=== PATIENT | male | born 1980 | race Caucasian/White ===

== ENCOUNTER 2020-03-26 17:46 | Emergency (ER) | payer OTHER ==
[~2020-03-26] VITALS: Ht 177.8 cm; Wt 88.0 kg
[~2020-03-26 17:46] MED LIST: BACL20 PO; Bactrim Ds Tab1 EACH PO; CEPH500 PO; Cipro500 MG PO; Crutch1 EACH MISC; GABA300 PO; HYDACE5325 PO; HYDR1TAB94 PO; MUPI2TO TOP; NAPR500 PO; Naprosyn500 MG PO; Norco 5-325 Ta1 EACH PO; Percocet 5-3251 EACH PO; RXALBOI INH; TRAM50 PO; Vibramycin100 MG PO
[2020-03-26 19:15] LABS: Calcium, Ionized (POC) 1.19 mmol/L (1.10-1.46); Chloride (POC) 100 mmol/L (98-108); Glucose (ISTAT POC) 167 mg/dL (70-99); Hemoglobin (POC) 13.9 g/dL (13.5-17.5); Potassium (POC) 3.4 mmol/L (3.5-5.5); Sodium (POC) 139 mmol/L (135-148); Total CO2 (POC) 26 mmol/L (21-32)
== END 2020-03-26 19:49 | disposition home or self-care (01) ==
LOC: ER 17:46
PROVIDERS: Emergency Medicine
DX: R55 Syncope and collapse (principal); S00.01XA Abrasion of scalp, initial encounter; F17.210 Nicotine dependence, cigarettes, uncomplicated; Z87.820 Personal history of traumatic brain injury; W19.XXXA Unspecified fall, initial encounter
CPT/HCPCS: 36415; 80047; 85014; 93005; 93010; 99283-25

== ENCOUNTER 2020-05-04 18:32 | Emergency (ER) | payer OTHER ==
[~2020-05-04] VITALS: Ht 177.8 cm; Wt 86.2 kg
[2020-05-04] MEDS ORDERED: SULTRIDS PO (20:27)
== END 2020-05-04 20:48 | disposition home or self-care (01) ==
LOC: ER 18:32
DX: L02.415 Cutaneous abscess of right lower limb (principal); L02.414 Cutaneous abscess of left upper limb; L02.413 Cutaneous abscess of right upper limb; L03.116 Cellulitis of left lower limb; L03.114 Cellulitis of left upper limb; L03.113 Cellulitis of right upper limb; F17.210 Nicotine dependence, cigarettes, uncomplicated; Z86.19 Personal history of other infectious and parasitic diseases; Z79.899 Other long term (current) drug therapy
CPT/HCPCS: 99283; A9270-GY

== ENCOUNTER 2023-12-19 11:47 | Day surgery (SDC) | payer OTHER ==
[~2023-12-19] VITALS: Ht 175.3 cm; Wt 92.8 kg
[~2023-12-19 11:47] MED LIST changes: +Amoxicillin500 MG PO; +Lactated Ringer's 1,000 ML IV ONE; +Lidocaine HCl 2% 10 ML SDA ONE; +SULTRIDS PO
[2023-12-19] MEDS ORDERED: GABA100 (12:25)
[2023-12-19] MEDS ORDERED: TOPI50 PO (12:26)
[2023-12-19] MEDS ORDERED: Lactated Ringer's 1,000 ML IV ONE (12:30)
[2023-12-19] MEDS ORDERED: NS 50 ML IV ONE (12:31)
[2023-12-19] MEDS ORDERED: CeFAZolin Sodium 2,000 MG VIAL ONE (12:31)
[2023-12-19] MEDS ORDERED: propofoL 20 ML IV ONE ×2 (13:01→13:29)
[2023-12-19] MEDS ORDERED: Ondansetron HCl 2 MG / ML 2ML Vial ONE (13:01)
[2023-12-19] MEDS ORDERED: Dexamethasone Sod Phos 10 MG/ML 1ML VIAL ONE (13:01)
[2023-12-19] MEDS ORDERED: FentaNYL Citrate 50 MCG/ML 2 ML Injection ONE (13:01)
[2023-12-19 14:00] VITALS: BP 144/98
[2023-12-19] MEDS ORDERED: HYDROcodone 5-APAP 325 TAB ONE (14:33)
== END 2023-12-19 14:38 | disposition home or self-care (01) ==
LOC: ORSCSDS 11:47
PROVIDERS: Orthopaedic Surgery
PROC: 01N54ZZ Release Median Nerve, Percutaneous Endoscopic Approach (ICD-10-PCS; principal; 2023-12-19 12:45)
DX: G56.03 Carpal tunnel syndrome, bilateral upper limbs (principal); Z87.891 Personal history of nicotine dependence; Z86.19 Personal history of other infectious and parasitic diseases; Z79.899 Other long term (current) drug therapy
CPT/HCPCS: A9270; J0690; J1100; J2001; J2405; J2704; J3010; J7120

== ENCOUNTER 2023-12-25 23:34 | Emergency (ER) | payer OTHER ==
[~2023-12-25] VITALS: Ht 175.3 cm; Wt 98.4 kg
[~2023-12-25 23:34] MED LIST changes: +GABA100; -Lactated Ringer's 1,000 ML IV ONE; -Lidocaine HCl 2% 10 ML SDA ONE; +TOPI50 PO
[2023-12-26 00:02] LABS: BASOPHILS ABSOLUTE AUTO 0.07 K/mm3 (0.00-0.23); BASOPHILS PERCENT AUTO 1 % (0-2); EOSINOPHILS ABSOLUTE AUTO 0.55 K/mm3 (0.00-0.68); EOSINOPHILS PERCENT AUTO 5 % (0-6); Hematocrit 44.8 % (37.0-53.0); Hemoglobin 15.6 g/dL (13.5-17.5); IMMATURE GRAN ABSOLUTE AUTO 0.02 K/mm3 (0.00-0.10); IMMATURE GRAN PERCENT AUTO 0 % (0-1); LYMPHOCYTES ABSOLUTE AUTO 2.95 K/mm3 (0.84-5.20); LYMPHOCYTES PERCENT AUTO 28 % (21-46); MONOCYTES PERCENT AUTO 9 % (4-13); Mean Corpuscular HGB 30.8 pg (26.0-34.0); Mean Corpuscular HGB Conc 34.8 g/dL (31.5-36.5); Mean Corpuscular Volume 89 fL (80-100); Mean Platelet Volume 8.4 fL (9.1-12.4); NEUTROPHILS ABSOLUTE AUTO 5.91 K/mm3 (1.96-9.15); NEUTROPHILS PERCENT AUTO 57 % (41-73); Platelet Count 352 K/mm3 (150-400); RDW Standard Deviation 38.9 fL (35.1-46.3); Red Blood Cell Count 5.06 M/mm3 (4.30-5.90)
[2023-12-26 00:20] LABS: Albumin, Blood 3.9 g/dL (3.4-5.0); Albumin/Globulin Ratio 1.1 (0.8-1.8); Bilirubin, Total 0.3 mg/dL (0.1-1.0); Bun/Creatinine Ratio 20.2 (12.0-20.0); Calcium, Blood 9.1 mg/dL (8.5-10.1); Creatinine, Blood 1.04 mg/dL (0.60-1.20); Globulin, Blood 3.6 g/dL (2.2-4.0); Total Protein, Blood 7.5 g/dL (6.4-8.2)
[2023-12-26] MEDS ORDERED: Norco 5-325 Ta1 EACH PO (00:45)
[2023-12-26 00:48] VITALS: BP 145/86
[2023-12-26] MEDS ORDERED: Trimethoprim/Sulfamethoxazole DS Tab PO ONE ×2 (01:55→02:40)
[2023-12-26] MEDS ORDERED: SULTRIDS PO (01:57)
== END 2023-12-26 02:40 | disposition home or self-care (01) ==
LOC: ER 23:34
PROVIDERS: Student in an Organized Health Care Education/Training Program
DX: M25.532 Pain in left wrist (principal); M79.671 Pain in right foot; W18.30XA Fall on same level, unspecified, initial encounter; Z98.890 Other specified postprocedural states; Z79.899 Other long term (current) drug therapy; F17.210 Nicotine dependence, cigarettes, uncomplicated
CPT/HCPCS: 73110; 73620; 80053; 85025; 99283-25; A9270

== ENCOUNTER → 2024-08-03 | Outpatient (CLI) | payer OTHER ==
[2024-08-10 23:05] LABS: CALPROTECTIN,FECAL 29 ug/g (<=49)
== END ==
LOC: LAB 17:29 → LAB SHORT 17:29
PROVIDERS: Nurse Practitioner Family
DX: R10.84 Generalized abdominal pain (principal); R19.4 Change in bowel habit
CPT/HCPCS: 83993

== ENCOUNTER 2024-09-09 07:40 | Day surgery (SDC) | payer OTHER ==
[~2024-09-09] VITALS: Ht 175.3 cm; Wt 91.5 kg
[~2024-09-09 07:40] MED LIST changes: +Lactated Ringer's 1,000 ML IV ONE; +propofoL 50 ML IV ONE
[2024-09-09] MEDS ORDERED: BUPRENORPHIN-N1 EAC1 (07:55)
[2024-09-09] MEDS ORDERED: Midazolam HCL 1 MG/ML 5MLVIAL ONE ×2 (08:39→08:41)
[2024-09-09] MEDS ORDERED: Lactated Ringer's 1,000 ML IV ONE (08:45)
[2024-09-09 09:58] VITALS: BP 116/73
== END 2024-09-09 10:05 | disposition home or self-care (01) ==
LOC: ORSCSDS 07:40
PROVIDERS: Internal Medicine Gastroenterology
PROC: 0DB78ZX Excision of Stomach, Pylorus, Via Natural or Artificial Opening Endoscopic, Diagnostic (ICD-10-PCS; principal; 2024-09-09 09:00)
PROC: 0DB98ZX Excision of Duodenum, Via Natural or Artificial Opening Endoscopic, Diagnostic (ICD-10-PCS; principal; 2024-09-09 09:00)
PROC: 0DJD8ZZ Inspection of Lower Intestinal Tract, Via Natural or Artificial Opening Endoscopic (ICD-10-PCS; principal; 2024-09-09 09:00)
DX: R10.84 Generalized abdominal pain (principal); K21.9 Gastro-esophageal reflux disease without esophagitis; R11.2 Nausea with vomiting, unspecified; R19.4 Change in bowel habit; K29.50 Unspecified chronic gastritis without bleeding; B96.81 Helicobacter pylori [H. pylori] as the cause of diseases classified elsewhere; Z86.16 Personal history of COVID-19; Z86.19 Personal history of other infectious and parasitic diseases; Z79.899 Other long term (current) drug therapy
CPT/HCPCS: 88305; 88342; J2250; J2704; J7120

== ENCOUNTER 2024-11-14 19:12 | Inpatient (IN) | payer OTHER ==
[~2024-11-14] VITALS: Ht 175.3 cm; Wt 89.3 kg
[~2024-11-14 19:12] MED LIST changes: +BUPRENORPHIN-N1 EAC1 SL; -GABA100; +GABAPENTIN600 MG PO; -Lactated Ringer's 1,000 ML IV ONE; +PANTOPRAZOLE SO40 M2 PO; +VISBIOME 112.51 EACH PO; -propofoL 50 ML IV ONE
[2024-11-14 19:46] LABS: BASOPHILS ABSOLUTE AUTO 0.03 K/mm3 (0.00-0.23); BASOPHILS PERCENT AUTO 0 % (0-2); EOSINOPHILS ABSOLUTE AUTO 0.29 K/mm3 (0.00-0.68); EOSINOPHILS PERCENT AUTO 3 % (0-6); Hematocrit 38.3 % (37.0-53.0); Hemoglobin 13.3 g/dL (13.5-17.5); IMMATURE GRAN ABSOLUTE AUTO 0.02 K/mm3 (0.00-0.10); IMMATURE GRAN PERCENT AUTO 0 % (0-1); LYMPHOCYTES PERCENT AUTO 19 % (21-46); MONOCYTES ABSOLUTE AUTO 0.81 K/mm3 (0.16-1.47); MONOCYTES PERCENT AUTO 8 % (4-13); Mean Corpuscular HGB 31.1 pg (26.0-34.0); Mean Corpuscular HGB Conc 34.7 g/dL (31.5-36.5); Mean Corpuscular Volume 90 fL (80-100); Mean Platelet Volume 8.5 fL (9.1-12.4); NEUTROPHILS ABSOLUTE AUTO 7.24 K/mm3 (1.96-9.15); NEUTROPHILS PERCENT AUTO 70 % (41-73); Platelet Count 257 K/mm3 (150-400); RDW Coefficient Variation 12.2 % (11.7-14.2); RDW Standard Deviation 39.7 fL (35.1-46.3); Red Blood Cell Count 4.28 M/mm3 (4.30-5.90); White Blood Cell Count 10.39 K/mm3 (4.00-11.30)
[2024-11-14 20:05] LABS: Albumin, Blood 3.7 g/dL (3.4-5.0); Albumin/Globulin Ratio 1.1 (0.8-1.8); Bilirubin, Total 0.3 mg/dL (0.1-1.0); Bun/Creatinine Ratio 22.6 (12.0-20.0); Calcium, Blood 8.5 mg/dL (8.5-10.1); Creatinine, Blood 0.84 mg/dL (0.60-1.20); Globulin, Blood 3.5 g/dL (2.2-4.0); Potassium, Blood 3.5 mmol/L (3.5-5.5); Total Protein, Blood 7.2 g/dL (6.4-8.2)
[2024-11-14] MEDS ORDERED: GABAPENTIN600 MG PO (20:11)
[2024-11-14] MEDS ORDERED: HYDROmorphone HCl/Pf 1MG SYR IV ONE ×2 (20:15→21:25)
[2024-11-14 22:06] LABS: Body Fluid Crystals NEG (NEGATIVE)
[2024-11-14 22:21] LABS: RBC Count, Synovial Fluid 10000 /mm3 (0-0); WBC Count, Synovial Fluid 86 /mm3 (0-180)
[2024-11-14] MEDS ORDERED: Acetaminophen 325 MG TABLET PO PRN (22:55)
[2024-11-14] MEDS ORDERED: FLU VACC TS2024-25(6MOS UP)/PF 45 MCG/0.5 ML SYRINGE IM ONE (22:55)
[2024-11-14] MEDS ORDERED: HYDROmorphone HCl/Pf 1MG SYR IV PRN (22:55)
[2024-11-14] MEDS ORDERED: Ondansetron HCl 2 MG / ML 2ML Vial IV PRN (23:00)
[2024-11-14] MEDS ORDERED: Naloxone HCl 0.4MG / ML 1ML Vial IV PRN (23:00)
[2024-11-14] MEDS ORDERED: OxyCODONE HCL 5 MG TAB PO PRN (23:00)
[2024-11-14 23:01] LABS: Eos, Synovial Fluid 3 % (0-2); Lymphs, Synovial Fluid 40 % (0-15); Monocytes/Macrophages, Synovia 21 % (0-65); Neutrophils, Synovial Fluid 36 % (0-24)
[2024-11-14 23:03] LABS: Appearance, Synovial Fluid Hazy (Clear); Color, Synovial Fluid Yellow (None-P Yel)
[2024-11-14] MEDS ORDERED: Nicotine Polacrilex 2 MG Gum PO ONE (23:10)
[2024-11-14] MEDS ORDERED: Vancomycin HCL 2,000 MG in NS 500 ML IV ONE (23:40)
[2024-11-15] MEDS ORDERED: Ketorolac Tromethamine 15mg Vial IV PRN (00:20)
[2024-11-15 01:05] VITALS: BP 148/96
[2024-11-15 03:01] VITALS: BP 147/99
[2024-11-15 03:31] LABS: BASOPHILS ABSOLUTE AUTO 0.03 K/mm3 (0.00-0.23); BASOPHILS PERCENT AUTO 0 % (0-2); EOSINOPHILS ABSOLUTE AUTO 0.37 K/mm3 (0.00-0.68); EOSINOPHILS PERCENT AUTO 3 % (0-6); Hematocrit 37.1 % (37.0-53.0); Hemoglobin 12.8 g/dL (13.5-17.5); IMMATURE GRAN ABSOLUTE AUTO 0.03 K/mm3 (0.00-0.10); IMMATURE GRAN PERCENT AUTO 0 % (0-1); LYMPHOCYTES ABSOLUTE AUTO 2.03 K/mm3 (0.84-5.20); LYMPHOCYTES PERCENT AUTO 19 % (21-46); MONOCYTES PERCENT AUTO 9 % (4-13); Mean Corpuscular HGB 31.1 pg (26.0-34.0); Mean Corpuscular HGB Conc 34.5 g/dL (31.5-36.5); Mean Corpuscular Volume 90 fL (80-100); Mean Platelet Volume 8.5 fL (9.1-12.4); NEUTROPHILS ABSOLUTE AUTO 7.51 K/mm3 (1.96-9.15); NEUTROPHILS PERCENT AUTO 68 % (41-73); Platelet Count 227 K/mm3 (150-400); RDW Coefficient Variation 12.3 % (11.7-14.2); RDW Standard Deviation 40.4 fL (35.1-46.3); Red Blood Cell Count 4.11 M/mm3 (4.30-5.90); White Blood Cell Count 10.97 K/mm3 (4.00-11.30)
[2024-11-15 03:48] LABS: Magnesium, Blood 1.8 mg/dL (1.6-2.4)
[2024-11-15 03:49] LABS: Albumin, Blood 3.4 g/dL (3.4-5.0); Bilirubin, Total 0.5 mg/dL (0.1-1.0); Bun/Creatinine Ratio 23.3 (12.0-20.0); Calcium, Blood 8.3 mg/dL (8.5-10.1); Creatinine, Blood 0.86 mg/dL (0.60-1.20); Globulin, Blood 3.5 g/dL (2.2-4.0); Potassium, Blood 3.8 mmol/L (3.5-5.5); Total Protein, Blood 6.9 g/dL (6.4-8.2)
--- NOTE | 2024-11-15 06:17 | NUR ---
SHIFT SUMMARY NEURO: WNL LUNGS: WNL CARDIAC: WNL GI/: WNL SKIN: LEFT KNEE SWELLING HAS DECREASED. WOUND PHOTO PLACED IN CHART. KNEE HAS BEEN ELEVATED AND ICED. STILL PAINFUL.
[2024-11-15 07:34] VITALS: BP 136/83
[2024-11-15] MEDS ORDERED: Lactobacil 2-S.Thermo-Bifido 1 1 Cap PO SCH (09:00)
[2024-11-15] MEDS ORDERED: Enoxaparin 40 MG/0.4 ML SYR SC SCH (09:00)
[2024-11-15] MEDS ORDERED: Docusate Sodium 100 MG Cap PO SCH (09:00)
[2024-11-15] MEDS ORDERED: Vancomycin HCL 1,250 MG in NS 250 ML IV SCH (10:00)
[2024-11-15 15:01] VITALS: BP 150/78
--- NOTE | 2024-11-15 17:36 | NUR ---
SHIFT SUMMARY PT A&Ox4, CALLS AND COMMUNICATES NEEDS APPROPRIATELY. IND IN ROOM. BP STABLE, HR 80'S, DENIES CP/PRESSURE. SpO2> 92% RA, DENIES SOB. L KNEE SWELLING/REDNESS REMAINED UNCHANGED, MANAGED PAIN PER EMAR. PT VERY PLEASANT/COOPERATIVE WITH CARE. NO OTHER EVENTS, WILL REPORT TO ONCOMING RN.
[2024-11-15 19:44] VITALS: BP 146/95
[2024-11-16 01:50] VITALS: BP 134/96
[2024-11-16 02:05] LABS: BASOPHILS ABSOLUTE AUTO 0.03 K/mm3 (0.00-0.23); BASOPHILS PERCENT AUTO 0 % (0-2); EOSINOPHILS ABSOLUTE AUTO 0.54 K/mm3 (0.00-0.68); EOSINOPHILS PERCENT AUTO 7 % (0-6); Hematocrit 36.5 % (37.0-53.0); Hemoglobin 12.6 g/dL (13.5-17.5); IMMATURE GRAN ABSOLUTE AUTO 0.01 K/mm3 (0.00-0.10); IMMATURE GRAN PERCENT AUTO 0 % (0-1); LYMPHOCYTES ABSOLUTE AUTO 1.99 K/mm3 (0.84-5.20); LYMPHOCYTES PERCENT AUTO 24 % (21-46); MONOCYTES ABSOLUTE AUTO 0.76 K/mm3 (0.16-1.47); MONOCYTES PERCENT AUTO 9 % (4-13); Mean Corpuscular HGB 31.6 pg (26.0-34.0); Mean Corpuscular HGB Conc 34.5 g/dL (31.5-36.5); Mean Corpuscular Volume 92 fL (80-100); Mean Platelet Volume 8.5 fL (9.1-12.4); NEUTROPHILS ABSOLUTE AUTO 4.94 K/mm3 (1.96-9.15); NEUTROPHILS PERCENT AUTO 60 % (41-73); Platelet Count 216 K/mm3 (150-400); RDW Coefficient Variation 12.1 % (11.7-14.2); RDW Standard Deviation 41.1 fL (35.1-46.3); Red Blood Cell Count 3.99 M/mm3 (4.30-5.90); White Blood Cell Count 8.27 K/mm3 (4.00-11.30)
[2024-11-16 02:15] LABS: Albumin, Blood 2.8 g/dL (3.4-5.0); Albumin/Globulin Ratio 0.8 (0.8-1.8); Bilirubin, Total 0.2 mg/dL (0.1-1.0); Bun/Creatinine Ratio 36.9 (12.0-20.0); Calcium, Blood 8.1 mg/dL (8.5-10.1); Creatinine, Blood 0.71 mg/dL (0.60-1.20); Globulin, Blood 3.3 g/dL (2.2-4.0); Potassium, Blood 4.1 mmol/L (3.5-5.5); Total Protein, Blood 6.1 g/dL (6.4-8.2)
--- NOTE | 2024-11-16 02:21 | NUR ---
SHIFT SUMMARY REDNESS ON KNEE DECREASING, PAIN IS MORE CONTROLLED
[2024-11-16 02:22] LABS: Vancomycin, Trough 11.5 ug/mL (5.0-10.0)
[2024-11-16 07:54] VITALS: BP 133/89
--- NOTE | 2024-11-16 12:23 | NUR ---
RN request a wheelchair for pt so he can go around the hospital with family. Gave wheelchair and 2 warm blankets. Pt will call when he is ready for a shower. Pt ind in room.
[2024-11-16 14:35] VITALS: BP 169/109
[2024-11-16 15:30] VITALS: BP 159/101
--- NOTE | 2024-11-16 18:04 | NUR ---
SHIFT SUMMARY: NEURO: PATIENT ALERT AND ORIENTED X4. PATIENT INDEPENDENT IN THE ROOM. PATIENT REPORTS INCREASE IN PAIN OF LEFT KNEE WITH POSITION CHANGES. PATIENT DENIES NUMBNESS/TINGLING OTHER THAN INTERMITTANTLY AROUND THE LEFT KNEE CAP. PATIENT HAD INCREASED PAIN IN THE LEFT KNEE THIS AFTERNOON. PAIN MEDICATION, REST AND HEAT APPLICATION HELPED THE PATIENT. DR. PHILLIPS AWARE. CARDIAC: PATIENT DENIED CHEST PAIN OR DISCOMFORT THROUGHOUT THE SHIFT. FAINT PULSES IN LEFT PEDIS (STRONG PULSES IN OTHER EXTREMITIES). SBP IN THE 140S-150S. PATIENT REPORTED THAT HE ALWAYS RUNS HIGH AND HAS DECLINED BLOOD PRESSURE MEDICATIONS AN OUTPATIENT. RESPIRATORY: PATIENT STABLE ON ROOM AIR. DENIES SHORTNESS OF BREATH OR DIFFICULTY BREATHING. GI/: PATIENT VOIDING WITHOUT DIFFICULTY. PATIENT REPORTED ONE SMALL, HARD BOWEL MOVEMENT. DENIES NAUSEA OR DIARRHEA. PSYCHSOCIAL: PATIENT COOPERATIVE WITH STAFF. PATIENT HAS A VERY SUPPORTIVE SIGNIFICANT OTHER. PATIENT DOES REPORT FEELINGS OF CABIN FEVER THAT WAS ALLEVIATED WITH OUT OF THE ROOM ACTIVITY.
--- NOTE | 2024-11-16 18:30 | NUR ---
CHANGES TO LEFT KNEE: PATIENT HAD A SMALL WHITE "HEAD" ON THIS LEFT KNEE THIS MORNING. THE DAY HAS PROGRESSED, THIS HAS INCREASED IN SIZE AND STARTED TO OOZE. TISSUE MORE FIRM AROUND THE LEFT KNEE. PATIENT AND RN HAVE NOTED INCREASE IN SIZE OF LEFT CALF AND THIGH. NOTIFIED DR. PHILLIPS OF THIS CHANGES. NO NEW ORDERS AT THIS TIME. POTENTIAL PLAN TO HAVE A CT IN THE MORNING.
[2024-11-16 19:33] VITALS: BP 148/103
[2024-11-16] MEDS ORDERED: OxyCODONE HCL 5 MG TAB PO PRN (20:12)
[2024-11-16] MEDS ORDERED: OxyCODONE HCL 5 MG TAB PO ONE (20:15)
[2024-11-16 23:34] VITALS: BP 152/99
[2024-11-17 03:09] VITALS: BP 132/92
[2024-11-17 04:44] LABS: BASOPHILS ABSOLUTE AUTO 0.03 K/mm3 (0.00-0.23); BASOPHILS PERCENT AUTO 0 % (0-2); EOSINOPHILS PERCENT AUTO 6 % (0-6); Hematocrit 35.8 % (37.0-53.0); Hemoglobin 12.4 g/dL (13.5-17.5); IMMATURE GRAN ABSOLUTE AUTO 0.02 K/mm3 (0.00-0.10); IMMATURE GRAN PERCENT AUTO 0 % (0-1); LYMPHOCYTES ABSOLUTE AUTO 2.17 K/mm3 (0.84-5.20); LYMPHOCYTES PERCENT AUTO 24 % (21-46); MONOCYTES ABSOLUTE AUTO 0.83 K/mm3 (0.16-1.47); MONOCYTES PERCENT AUTO 9 % (4-13); Mean Corpuscular HGB 31.8 pg (26.0-34.0); Mean Corpuscular HGB Conc 34.6 g/dL (31.5-36.5); Mean Corpuscular Volume 92 fL (80-100); Mean Platelet Volume 8.9 fL (9.1-12.4); NEUTROPHILS ABSOLUTE AUTO 5.56 K/mm3 (1.96-9.15); NEUTROPHILS PERCENT AUTO 61 % (41-73); Platelet Count 237 K/mm3 (150-400); RDW Standard Deviation 40.5 fL (35.1-46.3); White Blood Cell Count 9.11 K/mm3 (4.00-11.30)
[2024-11-17 05:02] LABS: Calcium, Blood 8.7 mg/dL (8.5-10.1); Creatinine, Blood 0.84 mg/dL (0.60-1.20); Potassium, Blood 4.1 mmol/L (3.5-5.5)
--- NOTE | 2024-11-17 05:46 | NUR ---
SHIFT SUMMARY PT REMAINS A&OX4. VSS ON RA. PAIN MANAGED THROUGHOUT NIGHT WITH PRNs IN EMAR. SEE CHART FOR FREQUENCY. PTs OXYCODONE INCREASED FROM 5MG TO 10MG PO. PT STATES THIS HELPED TREMEDOUSLY. HOWEVER, CONTINUES TO NEED IV DILAUDID. IV ABX GIVEN PER EMAR. PT RESTING COMFORTABLY AT THIS TIME. WILL CONTINUE WITH PLAN OF CARE.
[2024-11-17 07:50] VITALS: BP 139/109
[2024-11-17 10:40] LABS: RETIC HGB EQUIVALENT 34.8 pg (28.20-36.60); RETICULOCYTE ABSOLUTE 0.0516 M/mm3 (0.0200-0.1100); RETICULOCYTE COUNT PERCENT 1.32 % (0.50-2.50)
[2024-11-17 11:25] LABS: Percent Saturation 9.6 % (20.0-50.0)
[2024-11-17 11:28] VITALS: BP 153/107
[2024-11-17] MEDS ORDERED: Docusate Sodium/Senna 1 Tab PO PRN (11:50)
--- NOTE | 2024-11-17 15:56 | NUR ---
TRANSFER NOTE: PATIENT IS MEDICAL STATUS WITHOUT TELE AND HAS ROOM ON MEDICAL FLOOR. REPORT WAS GIVEN TO RECEIVING NURSE & PATIENT WENT BY WHEELCHAIR UPSTAIRS WITH ALL PERSONAL BELONGINGS. NOTIFICATION WAS MADE TO GIRLFRIEND.
[2024-11-17 16:02] VITALS: BP 161/134
[2024-11-17] MEDS ORDERED: NS 250 ML IV PRN (17:25)
--- NOTE | 2024-11-17 17:56 | NUR ---
SHIFT SUMMARY/ASSUMPTION OF CARE NOTE PT IS ALERT AND ORIENTED X4, HE IS INDEPENDENT IN THE ROOM. VSS. HE ARRIVED TO MEDICAL FLOOR AT APPROX. 1555. HE REPORTS PAIN IN L KNEE, PLEASE SEE EMAR FOR PAIN MANAGEMENT. L KNEE APPEARS, RED, IS WARM TO TOUCH AND IS TENDER TO TOUCH. ORTHOPEDIC DRJose Alberto CONSULTED AND HAS BEEN TO BEDSIDE TO WHICH HE DISCUSSED INTERVENTION TOMORROW AT 11/18/24. PT MADE AWARE/EDUCATED REGARDING NPO STATUS AT MIDNIGHT. HE HAS GOOD PO INTAKE, DENIES FEELINGS OF NAUSEA. CALL LIGHT W/IN REACH.
[2024-11-17 19:04] VITALS: BP 149/104
[2024-11-18] VITALS (10 sets, daily range): BP systolic 123–149; BP diastolic 70–102
[2024-11-18 01:12] LABS: BASOPHILS ABSOLUTE AUTO 0.04 K/mm3 (0.00-0.23); BASOPHILS PERCENT AUTO 1 % (0-2); EOSINOPHILS ABSOLUTE AUTO 0.44 K/mm3 (0.00-0.68); EOSINOPHILS PERCENT AUTO 6 % (0-6); Hematocrit 37.1 % (37.0-53.0); IMMATURE GRAN ABSOLUTE AUTO 0.02 K/mm3 (0.00-0.10); IMMATURE GRAN PERCENT AUTO 0 % (0-1); LYMPHOCYTES ABSOLUTE AUTO 1.65 K/mm3 (0.84-5.20); LYMPHOCYTES PERCENT AUTO 21 % (21-46); MONOCYTES ABSOLUTE AUTO 0.87 K/mm3 (0.16-1.47); MONOCYTES PERCENT AUTO 11 % (4-13); Mean Corpuscular HGB 31.3 pg (26.0-34.0); Mean Corpuscular Volume 89 fL (80-100); Mean Platelet Volume 8.3 fL (9.1-12.4); NEUTROPHILS ABSOLUTE AUTO 4.71 K/mm3 (1.96-9.15); NEUTROPHILS PERCENT AUTO 61 % (41-73); Platelet Count 268 K/mm3 (150-400); RDW Coefficient Variation 11.9 % (11.7-14.2); RDW Standard Deviation 38.4 fL (35.1-46.3); Red Blood Cell Count 4.15 M/mm3 (4.30-5.90); White Blood Cell Count 7.73 K/mm3 (4.00-11.30)
[2024-11-18 01:41] LABS: Albumin/Globulin Ratio 0.8 (0.8-1.8); Bilirubin, Total 0.2 mg/dL (0.1-1.0); Bun/Creatinine Ratio 19.4 (12.0-20.0); Calcium, Blood 8.5 mg/dL (8.5-10.1); Creatinine, Blood 0.88 mg/dL (0.60-1.20); Globulin, Blood 3.7 g/dL (2.2-4.0); Total Protein, Blood 6.7 g/dL (6.4-8.2)
[2024-11-18 01:42] LABS: Vancomycin, Trough 15.9 ug/mL (5.0-10.0)
--- NOTE | 2024-11-18 05:20 | NUR ---
SHIFT SUMMARY PATIENT IS ALERT AND ORIENTED. PATIENT HAS HAD NO ACUTE EVENTS THIS SHIFT. VITAL SIGNS REVIEWED. PATIENT HAS COMPLAINED OF PAIN THIS SHIFT AND MEDICATED PER EMAR. PATIENT HAS HAD NO COMPLAINTS OF SOB, NAUSEA, OR VOMITTING THIS SHIFT. PATIENT HAS BEEN NPO SINCE MIDNIGHT FOR PLANNED INTERVENTION TODAY. PATIENT HAS BEEN PLEASENT AND COOPERATIVE WITH CARE. PATIENT HAS BEEN IND IN ROOM WITH NO INCIDENTS. BED IN LOCKED AND LOWEST POSITION. CALL LIGHT IN PLACE.
--- NOTE | 2024-11-18 12:08 | NUR ---
PT RECENTLY HERE BY [facility]IN[facility]US. PT A/O. History, Chart, Medications and Allergies reviewed before start of procedure. Lungs clear T/O to Auscultation. PT REPORTS HAVING 1/2 PIECE OF CANDY AT 05:00 THIS AM, DISCUSSED WITH ANESTHESIA. Pre-Op teaching done. Pt verbalizes understanding.
[2024-11-18] MEDS ORDERED: EpiNEPhrine 1 MG/1 ML 1ML Vial ONE (12:12)
--- NOTE | 2024-11-18 12:49 | NUR ---
REPORT TO Matteo BLACKWELL.
[2024-11-18] MEDS ORDERED: Lidocaine HCl 1% 5 ML SYR INJ ONE (12:50)
[2024-11-18] MEDS ORDERED: FentaNYL Citrate 50 MCG/ML 2 ML Injection IV PRN ×2 (12:50→12:55)
[2024-11-18] MEDS ORDERED: Ondansetron HCl 2 MG / ML 2ML Vial IV PRN (12:50)
[2024-11-18] MEDS ORDERED: Lactated Ringer's 1,000 ML IV SCH (12:50)
[2024-11-18] MEDS ORDERED: HYDROmorphone HCl/Pf 1MG SYR IV PRN (12:55)
[2024-11-18] MEDS ORDERED: Atropine Sulfate 0.1 MG/ML 10ML SYR IV PRN (12:55)
[2024-11-18] MEDS ORDERED: Metoclopramide HCl 5MG / ML 2ML Vial IV PRN (12:55)
[2024-11-18] MEDS ORDERED: propofoL 20 ML IV ONE (12:57)
[2024-11-18] MEDS ORDERED: FentaNYL Citrate 50 MCG/ML 2 ML Injection ONE (12:57)
[2024-11-18] MEDS ORDERED: Midazolam HCl 1MG / ML 2ML Vial IV ONE (13:00)
[2024-11-18] MEDS ORDERED: Lidocaine HCL 1% 10 ML MDV ONE (13:00)
[2024-11-18] MEDS ORDERED: Rocuronium Bromide 10 MG/ML 5ML Injection IV ONE (13:00)
[2024-11-18] MEDS ORDERED: Lidocaine HCl 4% 5 ML SDA ONE (13:07)
[2024-11-18] MEDS ORDERED: Ketorolac Tromethamine 30mg Vial ONE ×2 (13:26→13:32)
[2024-11-18] MEDS ORDERED: Sugammadex Sodium 200 MG/2ML SDV (100 MG/ML) ONE (13:26)
[2024-11-18] MEDS ORDERED: Ondansetron HCl 2 MG / ML 2ML Vial ONE (13:26)
[2024-11-18] MEDS ORDERED: Ketamine HCl 100 MG / ML 5ML Vial ONE (13:33)
[2024-11-18] MEDS ORDERED: Lidocaine 1%-Epineph 1:100000 20 ML MDV INJ ONE (13:45)
[2024-11-18] MEDS ORDERED: LISI20 PO (14:08)
[2024-11-18] MEDS ORDERED: Ferrous Sulfate 325 MG Tab PO SCH (14:10)
--- NOTE | 2024-11-18 19:33 | NUR ---
SHIFT SUMMARY: PT A&O X4. PLEASANT AND COOPERATIVE WITH CARE. INDEPENDENT IN ROOM. I&D COMPLETED THIS SHIFT ON L. KNEE. MERVIN DRAIN PLACED. PER DR. WILKERSON, NOTE, POSSIBLE REMOVAL OF DRAINAGE TOMORROW. PT MEDICATED PER EMAR FOR L. KNEE CELLULITIS. IV ABX COMPLETED W/O COMPLICATIONS. CALL LIGHT IN REACH. BED IN LOWEST POSITION.
[2024-11-18] MEDS ORDERED: Arginine/Glutamine/Calcium Hmb 1 Packet PO SCH (21:00)
[2024-11-19 03:33] VITALS: BP 171/102
--- NOTE | 2024-11-19 03:52 | NUR ---
SHIFT SUMMARY ADMITTED FOR LEFT KNEE CELLULITIS. FULL CODE. IV ANTIB RX ARE SCHEDULED. I&D PERFORMED ON PREVIOUS SHIFT, MERVIN DRAIN AND DRESSINGS IN PLACE. DR. WILKERSON IS ORTHO CONSULT. HE IS ON A REGULAR DIET, ON RA, A&O X4. HE IS INDEPENDENT IN ROOM. PAIN MEDICATION GIVEN THIS SHIFT SEE EMAR.
[2024-11-19 03:53] VITALS: BP 161/106
[2024-11-19 03:54] VITALS: BP 165/103
[2024-11-19 05:01] LABS: BASOPHILS ABSOLUTE AUTO 0.02 K/mm3 (0.00-0.23); BASOPHILS PERCENT AUTO 0 % (0-2); EOSINOPHILS ABSOLUTE AUTO 0.41 K/mm3 (0.00-0.68); EOSINOPHILS PERCENT AUTO 6 % (0-6); Hematocrit 35.6 % (37.0-53.0); Hemoglobin 12.3 g/dL (13.5-17.5); IMMATURE GRAN ABSOLUTE AUTO 0.01 K/mm3 (0.00-0.10); IMMATURE GRAN PERCENT AUTO 0 % (0-1); LYMPHOCYTES PERCENT AUTO 22 % (21-46); MONOCYTES ABSOLUTE AUTO 0.76 K/mm3 (0.16-1.47); MONOCYTES PERCENT AUTO 10 % (4-13); Mean Corpuscular HGB 31.1 pg (26.0-34.0); Mean Corpuscular HGB Conc 34.6 g/dL (31.5-36.5); Mean Corpuscular Volume 90 fL (80-100); Mean Platelet Volume 8.5 fL (9.1-12.4); NEUTROPHILS ABSOLUTE AUTO 4.51 K/mm3 (1.96-9.15); NEUTROPHILS PERCENT AUTO 62 % (41-73); Platelet Count 265 K/mm3 (150-400); RDW Coefficient Variation 11.7 % (11.7-14.2); RDW Standard Deviation 38.5 fL (35.1-46.3); Red Blood Cell Count 3.95 M/mm3 (4.30-5.90); White Blood Cell Count 7.31 K/mm3 (4.00-11.30)
[2024-11-19 07:31] VITALS: BP 158/100
[2024-11-19] MEDS ORDERED: Thiamine HCl 100 MG Tab PO SCH (09:00)
[2024-11-19] MEDS ORDERED: Folic Acid 1 MG TAB PO SCH (09:00)
[2024-11-19 16:59] VITALS: BP 139/99
--- NOTE | 2024-11-19 17:56 | NUR ---
DRESSING, DR SUN REMOVED LEFT KNEE DRESSING, SITE CDI, NO DRAINAGE, PATIENT SHOWERED, NEW DRESSING APPLIED, XEROFORM 4X4 ABD, AND GAUZE WRAP, ICE PACK TO KNEE, MEDICATED FOR PAIN, PATIENT TOLERATED WITH EASE
--- NOTE | 2024-11-19 17:57 | NUR ---
PATIENT CONITNUED TO LEAVE THRID FLOWER, PATIENT SEEN AT [facility], THIS RN REPORTED TO PLATE FITTER AND PATIENT THAT IF THIS RN GIVES PAIN MEDS THE PATIENT NEEDS TO STAY ON THE THIRD FLOOR, PATIENT EASILY IRRITATED, OPPOSITIONAL, ARGUMENTATIVE AND ESCALATING. PATIENT INFORMED NURSE THAT HIS BATHROOM DOOR WILL ALWAYS BE LOCK, PATIENT EDUCATED WHY STAFF CHECKS FOR PATIENT SAFETY. PATIENT AGREED TO STAY ON THE THIRD FLOOR AND POSSIBLE DISCAHRGE TOMORROW. PRESENTLY COOPERATIVE AND MAKING NEEDS KNOWN
--- NOTE | 2024-11-19 18:01 | NUR ---
NO CHANGES, NEW DRESSING TO LEFT KNEE, POSSIBLE DISCHARGE TOMORROW, DILAUDID DISCONTINUED PATIENT AWARE, MEDICATED FOR PAIN, INDEPEDANT IN ROOM AND ON UNIT. PATIENT UNDERSTAND TO STAY ON THIRD FLOOR IF PAIN MEDICATION IS GIVEN. VSS, SHOWERED, VERU OPPOSITIONAL, CALL LIGHT WITH IN REACH
[2024-11-19 19:12] VITALS: BP 169/99
[2024-11-19] MEDS ORDERED: Linezolid 600 MG Tab PO SCH (21:00)
--- NOTE | 2024-11-20 04:12 | NUR ---
SHIFT SUMMARY ADMITTED FOR LEFT KNEE CELLULITIS. FULL CODE. HOPEFUL FOR DC TODAY. ON PO ANTIB RX. A&O X4, ON RA, INDEPENDENT. REGULAR DIET. I&D PERFORMED 11/18/24. DR. WILKERSON IS ORTHO CONSULT. HE DID REQUEST I REMOVE HIS IV MID-SHIFT, AND I COMPLIED HE HAS NO IV MEDICATIONS SCHEDULED.
[2024-11-20 07:26] VITALS: BP 148/102
[2024-11-20] MEDS ORDERED: Acetaminophen325 M1 PO (11:02)
[2024-11-20] MEDS ORDERED: DOCUZEN 8.6-501 EACH PO (11:04)
[2024-11-20] MEDS ORDERED: FERSU300 PO (11:05)
[2024-11-20] MEDS ORDERED: LINE600 PO (11:05)
[2024-11-20] MEDS ORDERED: FOLI1 PO (11:05)
[2024-11-20] MEDS ORDERED: OXYC5 PO (11:06)
[2024-11-20] MEDS ORDERED: VISBIOME 112.51 EACH PO (11:07)
[2024-11-20] MEDS ORDERED: IBU800 MG PO (11:08)
--- NOTE | 2024-11-20 11:26 | NUR ---
DISCHARGE PT DISCHARGED HOME, PRESCRIPTIONS SENT TO PHARMACY, PT HAS HARD PRESCRIPTION, EDUCATION PROVIDED.
== END 2024-11-20 11:38 | disposition home or self-care (01) | DRG 854 ==
LOC: ER 19:12 → MEDS 19:13 → PCU 11-15 00:23 → MEDS 11-15 15:45 → PCU 11-15 15:45 → MEDS 11-17 16:17
PROVIDERS: Family Medicine; Student in an Organized Health Care Education/Training Program; ADMIT Student in an Organized Health Care Education/Training Program
PROC: 3E03329 Introduction of Other Anti-infective into Peripheral Vein, Percutaneous Approach (ICD-10-PCS; principal; 2024-11-14)
PROC: 0S9D3ZZ Drainage of Left Knee Joint, Percutaneous Approach (ICD-10-PCS; 2024-11-14)
PROC: 0JBP0ZZ Excision of Left Lower Leg Subcutaneous Tissue and Fascia, Open Approach (ICD-10-PCS; 2024-11-18)
DX: A41.9 Sepsis, unspecified organism (principal); E87.1 Hypo-osmolality and hyponatremia; L02.416 Cutaneous abscess of left lower limb; L03.116 Cellulitis of left lower limb; B18.2 Chronic viral hepatitis C; F15.10 Other stimulant abuse, uncomplicated; K21.9 Gastro-esophageal reflux disease without esophagitis; I10 Essential (primary) hypertension; F11.21 Opioid dependence, in remission; D64.9 Anemia, unspecified; Z86.14 Personal history of Methicillin resistant Staphylococcus aureus infection; Z79.899 Other long term (current) drug therapy; Z86.19 Personal history of other infectious and parasitic diseases; Z87.442 Personal history of urinary calculi; Z98.890 Other specified postprocedural states; Z87.891 Personal history of nicotine dependence
CPT/HCPCS: 20610; 36415; 73562-LT; 73701; 80048; 80053; 80202; 82607; 82728; 82746; 83540; 83550; 83605; 83735; 85025; 85045; 87040; 87070; 87071; 87075; 87077; 87147; 87186; 87205; 89051; 89060; 96374; 96376; 99285-25; A9270; G0378; J0171; J1171; J1885; J2003; J2250; J2405; J2704; J3010; J3370; J7040; J7050; J7120; Q9967